=== PATIENT | male | born 2005 | race Two or more races ===

== ENCOUNTER 2025-06-04 09:40 | Emergency (ER) | payer SELFPAY ==
[2025-06-04 10:02] VITALS: BP 164/78; PULSE 93; RESP 18; TEMP 36.8; O2SAT 95; BMI 37.6
--- NOTE | 2025-06-04 10:17 | XR_ITS ---
Examination: CT abdomen with intravenous contrast CT pelvis with intravenous contrast 2-D coronal reconstructions 2-D sagittal reconstructions Date and time of exam: June 04, 2025, 11:49 a.m. INDICATIONS: History lump to the tailbone, clinical diagnosis abscess pilonidal cyst. CTDI: vol (mGy) 18.9 DLP: (mGycm) 1233 Technique: Multiple axial sections of the abdomen and pelvis have been obtained. 64 slice high-resolution scanner used. 3 mm axial sections have been obtained, post intravenous injection 60 cc [id number] 2-D sagittal, coronal reconstructions obtained. Low dose protocols were performed. One or more of the following dose reduction techniques were used; automated exposure control, adjustment of the mA and/or KV according to patient size, use of iterative reconstruction technique. Findings: No focal liver or splenic lesions Splenomegaly AP dimension 14 cm No gallstones No pancreatic or adrenal mass No renal or ureteral calculi, no hydronephrosis Aorta normal size Normal appendix No bowel obstruction or diverticulitis Abscess in the soft tissue posterior to the sacrococcygeal junction AP dimension 3.6 cm mediolateral dimension 2.7 cm cephalad caudad dimension 4.7 cm, extending to the skin surface Negative for proctitis Osseous structures intact No cortical bone destruction IMPRESSION: Abscess in the soft tissue posterior to the sacrococcygeal junction measuring 3.6 x 2.7 x 4.7 cm, extending to the skin surface This abscess does not appear to involve the thecal sac No perianal abscess
--- NOTE | 2025-06-04 10:22 | EDRME_ITS ---
Rapid Medical Screening Exam E Arrival date/time: 06/04/25 09:40 This is a 19-year-old male that comes into the emergency room with complaints of possible abscess, cyst to his tailbone area. Patient states he noticed that yesterday. Patient denies fever or chills. Patient states he has never had this before. Patient denies any past medical history. I have greeted and performed a focused initial assessment of this patient. Initial appropriate labs ordered at this time. A comprehensive ED assessment an d evaluation of the patient and analysis of all test and completion of medical decision making process will be conducted by additional ED provider. Chief Complaint: General Adult/Misc Complain Time Seen by Provider: 06/04/25 09:44 Vital signs: Vital Signs Temperature 98.2 F 06/04/25 10:02 Pulse Rate 93 06/04/25 10:02 Respiratory Rate 18 06/04/25 10:02 Blood Pressure 164/78 H 06/04/25 10:02 Pulse Oximetry (%) 95 06/04/25 10:02 Oxygen Delivery Method Room Air 06/04/25 10:02 Exam: Alert and oriented, breathing even and unlabored, erythema right above tailbone extending to the right buttock Clinical Impression: Possible abscess/cyst
[2025-06-04 10:56] LABS: Alanine Aminotransferase 35 U/L (10-49); Albumin, Serum 5.2 gm/dL (3.5-5.0); Albumin/Globulin Ratio 2.2 (1.2-2.2); Alkaline Phosphatase 145 U/L (46-116); Anion Gap 10 (7-16); Aspartate Amino Transferase 22 U/L (0-34); BUN/Creatinine Ratio 12 Ratio (12-20); Bilirubin,Total 0.6 mg/dL (0.3-1.2); Blood Urea Nitrogen 12 mg/dL (9-23); Calcium 9.5 mg/dL (8.3-10.6); Calcium (Corrected) 9.5 mg/dL (8.5-10.1); Carbon Dioxide 24.6 mMol/L (20.0-31.0); Chloride 108 mMol/L (98-107); Creatinine (Component) 1.0 mg/dL (0.6-1.3); Estimated Creatinine Clearance 155.6 mL/min (>60); Globulin 2.4 gm/dL (2.3-3.5); Glucose 105 mg/dL (74-106); Osmolality,Calculated 284 (275-295); Potassium 4.4 mMol/L (3.4-5.1); Sodium 143 mMol/L (136-145); Total Protein 7.6 gm/dL (5.7-8.2); eGFR > 60 See Note
[2025-06-04 11:04] LABS: Basophils # (Auto) 0.1 Thou/mm3 (0.0-0.2); Basophils % (Auto) 1 % (0-2.5); Eosinophils # (Auto) 0.2 Thou/mm3 (0.0-0.5); Eosinophils % (Auto) 2 % (0-10); Hematocrit 36.6 % (41.0-53.0); Hemoglobin 11.3 g/dL (13.5-16.0); Immature Granulocytes Auto 0.03 Thou/mm3 (0.00-0.00); Lymphocytes # (Auto) 1.5 Thou/mm3 (1.0-4.8); Lymphocytes % (Auto) 17 % (10-50); Mean Corpuscular HGB Conc 30.9 g/dl (31.0-37.0); Mean Corpuscular Hemoglobin 19.1 pg (25.0-35.0); Mean Corpuscular Volume 62 fL (80-100); Monocytes # (Auto) 0.9 Thou/mm3 (0.0-0.8); Monocytes % (Auto) 10 % (0-12); Neutrophils # (Auto) 6.0 Thou/mm3 (1.8-7.7); Neutrophils % (Auto) 70 % (37-80); Nucleated Red Blood Cell # 0.02 Thou/mm3 (0.00-0.00); Nucleated Red Blood Cell % 0 /100 WBC (0); Platelet Count 361 Thou/mm3 (140-440); RDW Standard Deviation 38.1 fL (35.1-43.9); Red Blood Count 5.93 Miln/mm3 (4.50-5.90); White Blood Count 8.6 Thou/mm3 (3.8-10.6)
[2025-06-04 11:34] LABS: Collection Type, Urine Voided; Squamous Epithelial Cell,Urine 0 /hpf (0-5)
[2025-06-04 11:50] LABS: Bilirubin,Urine Negative (Negative); Blood,Urine Negative (Negative); Clarity,Urine Clear (Clear/Hazy); Color,Urine Lt-Yellow (Lt Yel-Yel); Culture Indicated,Urine Not Indicated; Glucose, Urine Negative (Negative); Ketones,Urine Negative (Negative); Leukocyte Esterase,Urine Negative (Negative); Nitrite,Urine Negative (Negative); PH,Urine 6.5 (5.0-7.0); Protein,Urine Negative (Neg - Trace); RBC,Urine 1 /hpf (0-3); Specific Gravity,Urine 1.023 (1.001-1.035); Urobilinogen,Urine Negative mg/dL (0.0-1.0); WBC,Urine 1 /hpf (0-5)
[2025-06-04 16:58] LABS: Path Review Blood Smear Sent to Pathologist
[2025-06-04] MEDS: LIDOCAINE HCL 1% 20 ML VIAL INFL (18:28)
--- NOTE | 2025-06-04 18:31 | EDNOTE_ITS ---
ED General RME/HPI General Chief complaint: General Adult/Misc Complain Stated complaint: lump to tailbone per pt Time Seen by Provider: 06/04/25 09:44 Arrival date/time: 06/04/25 09:40 CC: Upper buttock pain HPI ongoing for the last 3 to 4 days with progressive increase in severity currently of 4-5 on a 10 scale no prior history of similar events. Patient denies any leaking or bleeding. RME / HPI RME / HPI narrative: 06/04/25 09:40 This is a 19-year-old male that comes into the emergency room with complaints of possible abscess, cyst to his tailbone area. Patient states he noticed that yesterday. Patient denies fever or chills. Patient states he has never had this before. Patient denies any past medical history. I have greeted and performed a focused initial assessment of this patient. Initial appropriate labs ordered at this time. A comprehensive ED assessment and evaluation of the patient and analysis of all test and completion of medical decision making process will be conducted by additional ED provider. Exam: Alert and oriented, breathing even and unlabored, erythema right above tailbone extending to the right buttock Impression: Possible abscess/cyst Related Data Previous Rx's ?Medication ?Instructions ?Recorded cephalexin 500 mg capsule 500 mg PO BID #21 caps 06/04 Allergies Allergy/AdvReac Type Severity Reaction Status Date / Time No Known Allergies Allergy Verified 06/04/25 09:41 Review of Systems Review of Systems Narrative Review of Systems: GEN: No fever, no chills, no weight loss EYES: No discharge, no visual changes, no pain HEENT: No ear pain, no congestion, no sore throat PULM: No shortness of breath, no cough, no congestion CV: No chest pain, no dyspnea on exertion, no palpitations GI: No nausea, no vomiting, no diarrhea, no pain, no constipation : No frequency, no urgency, no dysuria MUSC/SKEL: No joint pain, no back pain SKIN: Mass in the butt cheeks. No rash PSYCH: No hallucinations, no depression HEME/LYMPH: No easy bleeding or bruising tendencies NEURO: No weakness, no headache Past Medical History Past Medical History CARDIAC: Negative Cardiac Disorders RESPIRATORY: Negative Asthma GENITOURINARY: Negative Renal Disease ENDOCRINE: Negative Diabetes Mellitus Type 2 HEMATOLOGIC: Negative Sickle Cell Disease Social History SMOKING STATUS: Never smoker ED Exam Narrative Physical exam: [General: In mild discomfort but not in any acute distress Head normocephalic HEENT: Eyes pupils are PERRLA EOMs are intact mouth pink moist membranes uvula is midline swallow symmetrical phonation is normal all other subsystems are within within acceptable limits Neck is supple nontender Chest equal chest rise nontender to palpation Respiratory: Clear to auscultation no wheezes crackles or rubs CV: Rate rhythm is regular no murmurs rubs or clicks Abdomen is distended secondary to body habitus soft nontender no masses positive bowel sounds all 4 quadrants Back: No CVA tenderness no spinous process tenderness from cervical spine thoracic and lumbar spine Skin: Buttock: The right upper buttock at the gluteal cleft, 3 cm in circumference bulging area with tenderness around no surrounding erythema. Otherwise skin is intact no petechiae rash induration ulceration or crepitus Extremities: Moving all extremity against resistance cap refill less than 2 seconds neurosensory intact Neuro: Awake alert oriented x3 Glascow coma 15 no focal deficits] Course Quality Measures none Orders Category Date Time Status CT Screening NOW Care 06/04/25 10:21 Active Set Up Suture Tray STAT Care 06/04/25 18:[address] abdomen pelvis w con Stat Exams 06/04/25 10:17 Completed CBC Stat Lab 06/04/25 10:30 Completed Comprehensive Metabolic Panel Stat Lab 06/04/25 10:30 Completed Path Review Blood Smear Stat Lab 06/04/25 10:30 Completed Urinalysis, C/S if Indicated Stat Lab 06/04/25 11:20 Completed Lidocaine 1% 20 ml [Xylocaine 1% 20 ML] Med 06/04/25 18:11 Discontinued 20 ml INFL X1 ONE Vital Signs Vital signs: Vital Signs Temperature 98.2 F 06/04/25 10:02 Pulse Rate 93 06/04/25 10:02 Respiratory Rate 18 06/04/25 10:02 Blood Pressure 164/78 H 06/04/25 10:02 Pulse Oximetry (%) 95 06/04/25 10:02 Oxygen Delivery Method Room Air 06/04/25 10:02 PROCEDURES: Procedure Comment I&D, verbal consent obtained, anesthesia, 1% lidocaine without epinephrine 3 mL injected local site, then a #11 scalpel used to open a 1 cm full-thickness incision with a prompt irruption of joyce-black exudate foul-smelling, approximately 40 mL site was probed loculations were broken up no foreign body was found. Quarter inch plain gauze inserted. Dressing applied patient tolerated the procedure well Discharge Plan Plan Patient Disposition: HOME (Self Care) Patient condition on transfer: Stable Prescriptions/Referrals Prescriptions/Med Rec: New cephalexin 500 mg capsule 500 mg PO BID Qty: 21 0RF Referrals: Tobias Mak MD [Primary Care Provider, Family Practice] - In 1 week Problem List Clinical Impression: Abscess of buttock, right Patient/Caregiver Discharge Instructions Other Activity Instructions:: Keep the site clean and dry return in 3 days for packing removal. Continue take the antibiotics as prescribed with is worsening of symptoms in spite of these interventions return to the emergency room for reevaluation. Education Materials: ED Abscess, Incision And Drainage Print Language: [place] Stand Alone Forms: Jenna Award Info., Patient Portal Info Letter, Work/School Release PA/DATA ARCHITECT MANAGER Supervising Physician PA/DATA ARCHITECT MANAGER Supervising Physician: Javon HALLP MDM Medication Administration(s) Medication Administration History Discontinued Medications Lidocaine HCl (Lidocaine Hcl 1% 20 Ml Vial) 20 ml INFL X1 ONE Stop: 06/04/25 18:12 Last Admin: 06/04/25 18:28 Dose: 20 ml Documented By: NEY Comments: USED BY PROVIDER
[2025-06-04 19:49] VITALS: BP 138/78; PULSE 78; RESP 18; TEMP 36.8; O2SAT 98
== END 2025-06-04 19:50 | disposition home or self-care (01) ==
PROVIDERS: Nurse Practitioner Family; Emergency Provider Emergency Medicine; PCP Family Medicine
DX: L02.31 Cutaneous abscess of buttock (principal)
CPT/HCPCS: 10060; 36415; 74177; 80053; 81001; 85025; 99283; A4649; J3490; Q9967

== ENCOUNTER 2025-06-07 09:11 | Emergency (ER) | payer SELFPAY ==
[2025-06-07 09:12] VITALS: BMI 37.6
[2025-06-07 09:25] VITALS: BP 167/84; PULSE 68; RESP 16; TEMP 36.8; O2SAT 99
--- NOTE | 2025-06-07 09:39 | PD.EDWOUND ---
ED Wound/Laceration-RME/HPI General Chief Complaint: Wound Recheck / Suture Removal Stated Complaint: DRESSING CHANGE Time Seen by Provider: 06/07/25 09:17 Arrival date/time: 06/07/25 09:11 19-year-old male presents to the emergency department today stating he has a dressing in place patient is here to have reevaluation of his pilonidal cyst patient reports symptoms have significantly improved since I&D Limitations: no limitations Related Data Previous Rx's ?Medication ?Instructions ?Recorded cephalexin 500 mg capsule 500 mg PO BID #21 caps 06/04/25 sulfamethoxazole 800 1 tab PO BID 7 days #14 tabs 06/07/25 mg-trimethoprim 160 mg tablet (Bactrim DS) Allergies Allergy/AdvReac Type Severity Reaction Status Date / Time No Known Allergies Allergy Verified 06/07/25 09:12 Review of Systems Review of Systems Systems Reviewed: All systems reviewed, normal except as documented Constitutional Constitutional: Reports system reviewed and no additional complaints, except as documented, Denies fever(s) and Denies headache(s) Eyes Eyes: Reports system reviewed and no additional complaints, except as documented and Denies blurry vision ENT Ears, Nose, Mouth, and Throat: Reports system reviewed and no additional complaints, except as documented, Denies headache(s), Denies nasal congestion and Denies nasal discharge Cardiovascular Cardiovascular: Reports system reviewed and no additional complaints, except as documented, Denies chest pain and Denies dyspnea Respiratory Respiratory: Reports system reviewed and no additional complaints, except as documented, Denies chest congestion, Denies cough and Denies dyspnea Gastrointestinal Gastrointestinal: Reports system reviewed and no additional complaints, except as documented and Denies abdominal pain Integumentary/Breasts Skin/Breast: Reports system reviewed and no additional complaints, except as documented, Denies rash and Reports other (Pilonidal cyst) Neurologic Neurologic: Reports system reviewed and no additional complaints, except as documented, Reports as per HPI and Denies headache(s) Past Medical History Past Medical History CARDIAC: Negative Cardiac Disorders RESPIRATORY: Negative Asthma GENITOURINARY: Negative Renal Disease ENDOCRINE: Negative Diabetes Mellitus Type 2 HEMATOLOGIC: Negative Sickle Cell Disease Social History SMOKING STATUS: Never smoker ED Exam General Limitations: Present no limitations General appearance: Present alert and in no apparent distress Head Head exam: Present atraumatic Eye Eye exam: Present normal appearance, PERRL and EOMI ENT ENT exam: Present normal exam, normal oropharynx and mucous membranes moist Neck Neck exam: Present normal inspection, full ROM and trachea midline Chest Chest inspection: Present normal inspection and symmetric chest wall rise Respiratory Respiratory exam: Present normal lung sounds bilaterally Cardiovascular Cardiovascular exam: Present regular rate, normal rhythm and normal heart sounds Abdominal Exam Abdominal exam: Present soft and normal bowel sounds Extremities Exam Extremities exam: Present normal inspection and full ROM Back Exam Back exam: Present normal inspection and full ROM Neurological Exam Neurological exam: Present alert, oriented X3 and CN II-XII intact Psychiatric Psychiatric exam: Present normal affect and normal mood Skin Skin exam: Present warm and dry Expanded Skin Exam Body image:  1. Pilonidal cyst Course Quality Measures none Vital Signs Vital signs: Vital Signs Temperature 98.3 F 06/07/25 09:25 Pulse Rate 68 06/07/25 09:25 Respiratory Rate 16 06/07/25 09:25 Blood Pressure 167/84 H 06/07/25 09:25 Pulse Oximetry (%) 99 06/07/25 09:25 Oxygen Delivery Method Room Air 06/07/25 09:25 O2 saturation 99% on room air with normal Wound / Laceration MDM Narrative MDM Narrative:: 19-year-old male presents to the emergency department today stating he has a dressing in place patient is here to have reevaluation of his pilonidal cyst patient reports symptoms have significantly improved since I&D On exam patient well-appearing does not appear ill or toxic in no acute distress Patient discharged home in no distress to follow-up with primary care doctor in the next 24 to 48 hours and for any worsening symptoms to return to the ER immediately Patient data External records reviewed:: [facility] previous records Clinical information provided by:: patient Social determinants that could affect healthcare access:: none Patient has the following chronic illnesses:: None How is presenting disease/condition affected by chronic disease/condition?: no chronic disease Evaluation data The following diagnostics were reviewed and interpreted by me:: other (specify) Lab and/or radiology exams considered but not ordered:: Considered not ordered Interpretation Summary: N/A Medications / Prescriptions Medications or Prescriptions considered but not ordered:: Given Medication administrations:: Given Consultations Consultation(s) initiated? (list below): No Diagnosis Wound Differential Diagnosis: other (Pilonidal cyst) Most likely diagnosis given after review of the tests above:: Pilonidal cyst Admission Indicated Admission indicated?: not indicated Admission Request Was there a request for admission?: No Disposition Plan Disposition Plan: Discharge Discharge Attestation Discharge Attestation: The patient and all family members were given an opportunity to ask questions and understood the discharge instructions. Discharge instructions specifically effects, indications for sooner follow up or return to the emergency department, and the expected course of current diagnosis. Patient condition: Stable Discharge Plan Plan Patient Disposition: HOME (Self Care) Discharge Disposition comment: Stable Prescriptions/Referrals Prescriptions/Med Rec: New sulfamethoxazole-trimethoprim [Bactrim DS] 800-160 mg tablet 1 tab PO BID 7 Days Qty: 14 0RF No Action cephalexin 500 mg capsule 500 mg PO BID Qty: 21 0RF Problem List Clinical Impression: Infected pilonidal cyst Patient/Caregiver Discharge Instructions Education Materials: Pilonidal Cyst Additional Instructions: Please follow up with your primary care doctor in the next 24-48hrs for any worsening symptoms return here immediately Print Language: Citizen Of [place] Stand Alone Forms: Jenna Award Info., Patient Portal Info Letter SOM/MONIKA Supervising Physician SOM/MONIKA Supervising Physician: Dr. Bates
== END 2025-06-07 09:50 | disposition home or self-care (01) ==
LOC: SERX 09:55
PROVIDERS: Emergency Provider Emergency Medicine; PCP Family Medicine
DX: L05.91 Pilonidal cyst without abscess (principal); Z98.890 Other specified postprocedural states
CPT/HCPCS: 99281